=== PATIENT | male | born 1965 | race Caucasian/White ===

== ENCOUNTER 2020-08-01 15:08 | Inpatient (IN) | payer OTHER, SELFPAY ==
[2020-08-01] VITALS (13 sets, daily range): BP systolic 153–187; BP diastolic 90–118; PULSE 62–86; RESP 11–20; TEMP 36.6–36.9; O2SAT 97–100; BMI 24.2
--- NOTE | ~2020-08-01 | US_ITS ---
EXAMINATION: US carotid duplex BI DATE: 08/02/2020 11:21 INDICATION: Stroke TECHNIQUE: Grayscale, color Doppler, and pulsed Doppler images of the cervical carotid arteries were obtained. The degree of vessel stenosis is placed in one of the following categories: normal, <50%, 5 0-69%, >=70% but less than near-occlusion, near-occlusion, or total occlusion. Note that percent sten osis relative to normal distal artery lumen diameter is indirectly measured from velocity measurement s as described by Mark Anthony, et al. Radiology 2003; 229:340-346. COMPARISON: None. FINDINGS: RIGHT: The right common carotid artery (CCA) peak systolic velocity (PSV) is 78 cm/s. The right internal car otid artery (ICA) PSV is 40 cm/s. The right ICA end-diastolic velocity (EDV) is 18 cm/s. The right IC A/CCA PSV ratio is 0.5. Grayscale and color Doppler images demonstrate no appreciable stenosis or heidi que in the ICA. The external carotid artery (ECA) PSV is 51 cm/s. There is antegrade flow in the righ t vertebral artery. LEFT: The left CCA PSV is 63 cm/s. The left ICA PSV is 48 cm/s. The left ICA EDV is 17 cm/s. The left ICA/C CA PSV ratio is 0.8. Grayscale and color Doppler images and straight no appreciable stenosis or plaqu e in the ICA. The ECA PSV is 59 cm/s. There is antegrade flow in the left vertebral artery. IMPRESSION: 1. No evident plaque or stenosis in the right internal carotid artery. 2. No evident plaque or stenosis in the left internal carotid artery. Reviewed, dictated and finalized at location B.
--- NOTE | ~2020-08-01 | MR_ITS ---
EXAMINATION: MR brain/brain stem wo/w con EXAM DATE: 08/02/2020 11:36 INDICATION: Slurred speech. Left facial paresthesia. TECHNIQUE: Magnetic resonance imaging (MRI) of the brain/brain stem obtained without contrast. Sagit dillan T1, axial diffusion, gradient echo (T2*), T1, T2, FLAIR sequences obtained. Patient was then inj ected with 16 cc intravenous Multihance contrast. Axial and coronal postcontrast T1 weighted sequence s obtained. Correlation is made to head CT from 08/01/2020. FINDINGS: There is region of increased T2/FLAIR signal intensity in the right basal ganglia and inter nal capsular, the low-density region seen on yesterday's head CT, measuring about 1 cm in size. There is no restricted diffusion within this as would be expected for an acute infarction. There is puncta te focus of enhancement in the middle of this measuring 4 mm. No other areas of abnormal enhancement. Correlating with history, reportedly patient had symptoms for about a week. This could be a subacute infarction which has recovered from its restricted diffusion. Differential diagnosis does include shawn itary brain lesion with adjacent vasogenic edema based on imaging (history is more consistent with an infarction). There is no acute hemorrhage seen on the T2*, a hemosiderin sensitive sequence. The ventricles are n ormal in size. There are no extra-axial collections. Flow voids are seen in the cerebral arteries o n the T2-weighted sequences consistent with their expected patency. The orbits are unremarkable. So ft tissue is unremarkable. IMPRESSION: Right basal ganglia/internal capsular signal abnormality could be subacute infarction but with differential diagnosis including vasogenic edema from small underlying enhancing brain mass. Co nsider 1-3 month follow-up brain MRI to confirm expected evolution. Reviewed, dictated and finalized at location A. IMPRESSION: Right basal ganglia/internal capsular signal abnormality could be s ubacute infarction but with differential diagnosis including vasogenic edema fr om small underlying enhancing brain mass. Consider 1-3 month follow-up brain MR I to confirm expected evolution.
--- NOTE | ~2020-08-01 | CT_ITS ---
EXAMINATION: CT brain wo con DATE: 08/01/2020 15:52 INDICATION: Slurred speech. Facial weakness. TECHNIQUE: Computed tomography (CT) of the head was performed without intravenous contrast. The mA wa s adjusted according to patient size. Iterative reconstruction technique was employed. The dose-lengt h product was 605.33 mGy-cm. COMPARISON: None FINDINGS: There is an infarct involving the right basal ganglia and right internal capsule. There is an old lacunar infarct in the left basal ganglia. There is no intracranial hemorrhage or abnormal mas s lesion. The orbits are normal. There is mild mucosal thickening in the paranasal sinuses. The masto id air cells are normal. IMPRESSION: 1. Infarct involving the right basal ganglia and right internal capsule, likely acute. I called this result to Dr. Beal. 2. Old lacunar infarct in the left lentiform nucleus. Reviewed, dictated and finalized at location A.
--- NOTE | ~2020-08-01 | XR_ITS ---
EXAMINATION: XR chest 1V DATE: 08/01/2020 15:57 INDICATION: Shortness of breath. Confusion. Stroke. TECHNIQUE: A single frontal view of the chest was obtained. COMPARISON: None. FINDINGS: A calcified right lung nodule and calcified right hilar lymph nodes are consistent with old granulomatous disease. No pleural effusion or pneumothorax. The heart size is normal. There is an ol d healed fracture of left scapula. IMPRESSION: 1. No acute cardiopulmonary disease. Reviewed, dictated and finalized at location A.
--- NOTE | 2020-08-01 15:34 | ECG_ITS ---
Measurements Intervals Chancellor Rate: 71 P: 55 MN: 176 QRS: -5 QRSD: 138 T: 30 QT: 404 QTc: 442 Interpretive Statements SINUS RHYTHM INTRAVENTRICULAR CONDUCTION DELAY DELAYED PRECORDIAL R/S TRANSITION BASELINE ARTIFACT- V5-V6 BORDERLINE ECG Electronically Signed On 08-01-2020 17:19:56 CDT by Juan Rojas D.O.
[2020-08-01 15:50] LABS: Basophils Percent Auto 0.5 % (0.2-1.2); Eosinophils Absolute Auto 0.1 K/mm3 (0-0.3); Eosinophils Percent Auto 1.4 % (0-4.4); Hematocrit 42.4 % (42.0-52.0); Hemoglobin 14.4 g/dL (14.0-18.0); Immature Granulocyte Absolute 0.03 K/mm3 (0.00-0.031); Immature Granulocyte Percent A 0.4 % (0-0.5); Lymphocytes Absolute Auto 2.18 K/mm3 (0.9-3.2); Mean Corpuscular Hemoglobin 30.1 pg (26-34); Mean Corpuscular Volume 88.7 fl (80-100); Mean Platelet Volume 9.8 fl (7.4-10.4); Monocytes Absolute Auto 0.7 K/mm3 (0.1-0.6); Monocytes Percent Auto 8.2 % (2.6-8.5); Neutrophils Absolute Auto 5.3 K/mm3 (1.3-6.7); Neutrophils Percent Auto 63.5 % (45.5-73.1); Platelet Count Result 289 k/mm3 (150-375); Red Blood Count 4.78 M/mm3 (4.6-6.20); Red Cell Distribution Width 14.5 % (11.5-14.5); White Blood Count 8.4 K/mm3 (4.5-10.0)
[2020-08-01 16:01] LABS: Anion Gap 8 mmol/L (8-16); Blood Urea Nitrogen 11 mg/dL (9-20); Carbon Dioxide 24 mmol/L (22-30); Chloride 108 mmol/L (98-107); Estimated CRCL calculation 99 ml/min; Estimated Glomerular Filt Rate > 60; Glucose 98 mg/dL (75-110); Potassium 3.9 mmol/L (3.4-5.0); Sodium 140 mmol/L (137-145)
[2020-08-01 16:03] LABS: INR 0.9; Prothrombin Time 12.2 Seconds (11.1-14.7)
[2020-08-01 16:04] LABS: Partial Thromboplastin Time 30.2 SECONDS (22.3-36.8)
[2020-08-01 16:13] LABS: Troponin I 0.013 ng/mL (0.000-0.034)
[2020-08-01 17:02] LABS: Cholesterol 220 mg/dL (0-200); HDL Direct 79 mg/dL; Triglycerides 159 mg/dL (<150)
[2020-08-01 17:12] LABS: LDL Cholesterol Direct 96 mg/dL
[2020-08-01 17:24] LABS: Glucose Point of Care 76 (65-105)
--- NOTE | 2020-08-01 18:52 | ED.NEUROSD ---
HPI - Neuro Symptoms/Deficit General Chief Complaint: Neuro Symptoms/Deficit Stated Complaint: AMS, R facial droop Time Seen by Provider: 08/01/20 16:01 Source: patient Mode of arrival: ambulatory Limitations: no limitations History of Present Illness HPI Narrative: 55-year-old male Patient complains of left-sided facial weakness that started last Sunday after a long difficult shift at work He noticed facial asymmetry, a lump by his upper lip, and a tingly feeling to his tongue which over the course of the past 6 days have improved but not quite 100% resolved Today he submitted finally to his 's urging and presented to the hospital to be evaluated He is not having any speech difficulties, any visual difficulties, any swallowing difficulties, notes no weakness of his arms or his legs, and no gait difficulty Related Data Home Medications Medication Instructions Recorded Confirmed No Home Medications 08/01/20 08/01/20 Allergies Allergy/AdvReac Type Severity Reaction Status Date / Time No Known Allergies Allergy Verified 08/01/20 16:23 Review of Systems Review of Systems: All systems reviewed & are unremarkable except as noted in HPI and below Constitutional: Constitutional: Reports no additional constitutional complaints, Denies chills, Denies fever(s) and Denies headache(s) Eyes: Eyes: Reports no additional eye complaints and Denies change in vision ENT: Denies headache(s) and Denies sore throat Cardiovascular: Cardiovascular: Denies chest pain and Denies dyspnea Respiratory: Respiratory: Denies cough and Denies dyspnea Gastrointestinal: Gastrointestinal: Denies abdominal pain, Denies diarrhea and Denies vomiting Genitourinary: Genitourinary: Denies dysuria and Denies urinary frequency Musculoskeletal: Musculoskeletal: Denies deformity, Denies arthralgias, Denies joint swelling and Denies numbness Integumentary/Breasts: Skin/Breast: Denies rash and Denies wounds Neurologic: Denies headache(s), Reports focal weakness and Reports numbness Psychiatric: Psychiatric: Reports no additional psychiatric complaints Endocrine: Endocrine: Reports no additional endocrine complaints Hematologic/Lymphatic: Hematologic/Lymphatic: Reports no additional hematologic/lymphatic complaints Allergic/Immunologic: Allergic/Immunologic: Reports no additional allergic/immunologic complaints PMFSH Social History Social History Gender identity (if verbalized by the patient): Male Exam Const: General: cooperative, no acute distress and alert Orientation/consciousness: patient oriented x3 (alert) HENMT: Head: normal to inspection, normocephalic and atraumatic Ears: external ears normal General nose exam: no epistaxis Eyes: Conjunctivae: conjunctivae normal EOM: EOMs intact bilaterally Neck: Neck: normal visual inspection, supple and no JVD Other: No carotid bruits Resp: Effort & Inspection: normal respiratory effort and not labored Auscultation: clear to auscultation bilaterally, no rales, no rhonchi, no wheezes and other (BS =) Cardio: Rate: regular rate Rhythm: regular rhythm Heart sounds: no murmurs GI: GI Palp: Yes Soft to palpation and No Tenderness to palpation present (GI) Skin: General skin exam: normal color and no rashes or lesions noted Neuro: General: patient oriented x3 (alert) and moves all extremities Cranial nerves: Yes Nystagmus not present Speech: normal speech Extrem: General: normal to inspection Psych: Affect: normal affect Course Vital Signs Vital signs: Vital Signs Temperature 36.6 C 08/01/20 15:26 Pulse Rate 86 08/01/20 15:26 Respiratory Rate 16 08/01/20 15:26 Blood Pressure 169/97 H 08/01/20 15:26 Pulse Oximetry 100 08/01/20 15:26 Temperature 36.8 C 08/01/20 18:16 Pulse Rate 66 08/01/20 18:34 Respiratory Rate 14 08/01/20 18:34 Blood Pressure 156/99 H 08/01/20 18:34 Pulse Oximetry 99 08/01/20 18:34 MDM - Neuro Symptoms/De
--- NOTE | 2020-08-01 19:45 | PM.IMHP ---
H&P: HPI History of Present Illness Date/Time: 08/01/20 19:45 Chief Complaint: Slurred speech and left face paresthesias. Narrative: This is a 55-year-old male smoker with history of hypertension no longer on medication who presented to the emergency department earlier today from home for evaluation of slurred speech and left facial paresthesias. Last Sunday while at work he noticed that the left side of his mouth and tongue seemed to feel a bit strange and his speech was slurred. Initially he chalked that up to having a stressful shift however it has persisted though his symptoms have improved. Today he apparently took a medication that he obtained in [place] for erectile dysfunction and he became very anxious and ?hyperactive.? His thought that his speech also seem to be more slurred and she was worried given his other symptoms and made him come in today for evaluation. Brain CT showed a likely acute infarct in the right basal ganglia and the right internal capsule as well as findings of an old lacunar infarct in left lentiform nucleus, unknown to the patient. He denies vertigo but reports that he felt a bit off balance earlier today. No syncope or near syncope. No acute auditory visual changes. He denies focal weakness. No paresthesias of the extremities. He has no history of cardiac dysrhythmia and denies feelings of racing heart, palpitations, and irregular heartbeat. No dysphagia or concerns for aspiration. Review of Systems Review of Systems: Narrative: Twelve systems were reviewed with pertinent positives and negatives as per HPI. He was on blood pressure medications quite sometime ago but started following a stricter diet and was able to come off of those medications. He does not check his blood pressures at home. He denies headache. No exertional chest pain or shortness of breath. 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 Except as documented, all other systems were reviewed and are negative. [facility] Past Medical History Medical History (Updated 08/02/20 @ 00:21 by Ailin Pratt PA-C) Blind right eye Nearly 100% blind in the right eye due to previous trauma and retinal detachment. Hypertension Patient was able to come off of his antihypertensives with a change in diet. Tobacco abuse Surgical History Surgical History (Updated 08/02/20 @ 00:17 by Ailin Pratt PA-C) History of repair of anterior cruciate ligament of right knee Family History Family History Mother Heart disease Hypertension Father Heart disease Congestive heart failure Social History Social History (Updated 08/02/20 @ 00:20 by Ailin Pratt PA-C) Social History: The patient lives with his in [place]. He works in [employer]. He has smoked about a pack of cigarettes per day, off and on for many years. At one point in time he quit for 5 years but has been smoking for the last decade. He consume alcohol socially and in moderation. No drug use. He designates his Billie as his surrogate decision maker and he wishes to be a full code. Meds Home Medications and Allergies Home Medications Medication Instructions Recorded Confirmed Type No Home Medications 08/01/20 08/01/20 History Allergies Allergy/AdvReac Type Severity Reaction Status Date / Time No Known Allergies Allergy Verified 08/01/20 16:23 Vital Signs Vital Signs - 24 hr 08/01/20 15:26 08/01/20 16:19 08/01/20 16:46 Temperature 97.8 F 98.4 F Pulse Rate 86 68 71 Respiratory Rate 16 13 18 Blood Pressure 169/97 H 187/110 H 187/118 H Pulse Oximetry 100 98 100 08/01/20 17:01 08/01/20 17:30 08/01/20 17:57 Temperature Pulse Rate 64 62 69 Respiratory Rate 13 12 11 L Blood Pressure 167/104 H 161/99 H 153/91 H Pulse Oximetry 100 99 100 08/01/20 18:01 08/01/20 18:16 08/01/20 18:34 Tem
[2020-08-01] MEDS: LACTATED RINGERS 1,000 ML 125 ML IV CONT (20:14)
[2020-08-02] VITALS (13 sets, daily range): BP systolic 155–198; BP diastolic 85–118; PULSE 55–83; RESP 16; TEMP 35.9–36.5; O2SAT 98–100
--- NOTE | 2020-08-02 00:26 | ECHO_ITS ---
Patient Info Name: Tyson Taylor Age: 55 years : 1965 Gender: Male Ht: 72 in Wt: 178 lbs BSA: 2.03 m2 HR: 62 bpm BP: 175 / 90 mmHg Technical Quality: Good Exam Date: 08/02/2020 3:03 PM Exam Location: [facility] Patient Status: Inpatient Admit Date: 08/01/2020 Staff Ordering Physician: Ailin Pratt PA-C Cabinetmaker Supervisor: Sarah Goodrich RDCS Attending Provider: Junie Rojas PA-C Referring Physician: Santa TRIVEDI; Exam Type: CA echo dop bubble study w con Study Info Indications - CVA I10 - Essential (primary) hypertension Complete two-dimentional, color flow and Doppler transthoracic echocardiogram is performed with agitated saline and with contrast to opacify the left ventricle and to improve the delineation of the left ventricle endocardial borders. Contrast/Agitated Saline Contrast/Ag. Saline: Agitated Saline Amount: 20.00 ml Administered By: Kavita Orta RN Existing IV Access: Yes IV Access Condition: patent with no signs of infiltration Contrast/Ag. Saline: Definity Amount: 1.00 ml Administered By: Kavita Orta RN Existing IV Access: Yes IV Access Condition: patent with no signs of infiltration Summary 1. Left ventricular chamber dimension is moderately enlarged. 2. Definity contrast administered improved wall motion interpretation. 3. Left ventricular systolic function is mildly reduced, estimated at 45-50%. 4. There is mildly increased left ventricular wall thickness. 5. The left ventricular diastolic function is grade I diastolic dysfunction. 6. E/e' 5 is not elevated. 7. Global longitudinal strain is abnormal at -12.2%. 8. Agitated saline injection opacified right sided cardiac chambers without shunt to left sided cardiac chambers. However, with second agitated saline injection with valsalva maneuver several bubbles did shunt from right to left suggestive of patent foramen ovale. 9. There is mild aortic valve sclerosis. 10. There is trace mitral valve regurgitation. 11. No pulmonary hypertension, estimated pulmonary arterial systolic pressure is 25 mmHg. 12. There is trace pulmonic regurgitation. Left Ventricle E/e' 5 is not elevated. Global longitudinal strain is abnormal at -12.2%. Definity contrast administered improved wall motion interpretation. Left ventricular chamber dimension is moderately enlarged. Left ventricular systolic function is mildly reduced, estimated at 45-50%. There is mildly increased left ventricular wall thickness. The left ventricular diastolic function is grade I diastolic dysfunction. Right Ventricle Right ventricular chamber dimension is normal. Right ventricular systolic function is normal. Left Atria Left atrial chamber dimension is normal. Right Atria Right atrial chamber dimension is normal. Atrial Septum Agitated saline injection opacified right sided cardiac chambers without shunt to left sided cardiac chambers. However, with second agitated saline injection with valsalva maneuver several bubbles did shunt from right to left suggestive of patent foramen ovale. Suspected patent foramen ovale visualized by agitated saline imaging. Aortic Valve The aortic valve is trileaflet. There is mild aortic valve sclerosis. There is no aortic valve stenosis. There is no aortic valve regurgitation. Pulmonic Valve There is trace pulmonic regurgitation. Mitral Valve There is no mi
[2020-08-02] MEDS: LOSARTAN POTASSIUM 12.5 MG TABLET PO (00:37)
[2020-08-02 05:51] LABS: Alanine Aminotransferase 24 U/L (4-50); Albumin Level 3.6 g/dL (3.5-5.1); Alkaline Phosphatase 73 U/L (38-126); Aspartate Amino Transferase 31 U/L (17-59); Bilirubin,Total 0.4 mg/dL (0.2-1.3); Cholesterol 194 mg/dL (0-200); HDL Direct 67 mg/dL; Triglycerides 83 mg/dL (<150)
[2020-08-02 06:02] LABS: LDL Cholesterol Direct 89 mg/dL
[2020-08-02] MEDS: hydroCHLOROthiazide 25 MG TABLET PO (08:02)
[2020-08-02] MEDS: LOSARTAN POTASSIUM 25 MG TABLET PO (08:02)
[2020-08-02] MEDS: ASPIRIN 81 MG ENTERIC TABLET PO (08:02)
--- NOTE | 2020-08-02 10:16 | WPDNEURCNPN ---
Assessment and Plan Assessment and plan (1) Tobacco abuse: Code(s): Z72.0 - Tobacco use Status: Acute (2) Hypertension: Code(s): I10 - Essential (primary) hypertension Status: Acute (3) Cerebrovascular accident: Code(s): I63.9 - Cerebral infarction, unspecified Status: Acute Additional Plan right hemispheric subcortical stroke with involvement of the right basal ganglia and internal capsule further evaluation will be necessary to rule out the possibly underlying source of embolic phenomenon if it is there before recall it only hypertensive subcortical disease he will need the MRI echocardiogram Doppler study of the carotids Consult date: 08/02/20 Time Seen: 10:00 HPI: Tyson Taylor is a 55 year old male Has been admitted to the hospital for the complaints of left-sided facial paresthesia along with slurred speech in addition to the ongoing history of 1. Hypertension though at present is not taking any medication. Per the information available last Sunday while at work in noted the left side of his mouth and tongue seem to feel a bit strange and his speech was somewhat slurred on the day of admission this time he became extremely anxious and hyperactive his speech was also somewhat slurred initial CT scan in the emergency room revealed acute infarct in the right basal ganglia and right internal capsule along with the lacunar infarct the left lentiform nucleus though he had no associated nausea vomiting or dizziness but at the same time he was somewhat off balance. his past history consistent with the blindness in the right eye along with the hypertension and history of tobacco abuse and he has undergone repair of the anterior cruciate ligament of the right knee. Review of Systems Review of Systems: All systems reviewed & are unremarkable except as noted in HPI and below PMFSH Past Medical History Medical History Blind right eye Nearly 100% blind in the right eye due to previous trauma and retinal detachment. Hypertension Patient was able to come off of his antihypertensives with a change in diet. Tobacco abuse Surgical History Surgical History History of repair of anterior cruciate ligament of right knee Family History Family History Mother Heart disease Hypertension Father Heart disease Congestive heart failure Social History Social History Social History: The patient lives with his in [place]. He works in [employer]. He has smoked about a pack of cigarettes per day, off and on for many years. At one point in time he quit for 5 years but has been smoking for the last decade. He consume alcohol socially and in moderation. No drug use. He designates his Billie as his surrogate decision maker and he wishes to be a full code. Meds Home Medications and Allergies Home Medications Medication Instructions Recorded Confirmed Type No Home Medications 08/01/20 08/01/20 History Allergies Allergy/AdvReac Type Severity Reaction Status Date / Time No Known Allergies Allergy Verified 08/01/20 16:23 Vital Signs Vital Signs - 24 hr 08/01/20 15:26 08/01/20 16:19 08/01/20 16:46 Temperature 36.6 C 36.9 C Pulse Rate 86 68 71 Respiratory Rate 16 13 18 Blood Pressure 169/97 H 187/110 H 187/118 H Pulse Oximetry 100 98 100 08/01/20 17:01 08/01/20 17:30 08/01/20 17:57 Temperature Pulse Rate 64 62 69 Respiratory Rate 13 12 11 L Blood Pressure 167/104 H 161/99 H 153/91 H Pulse Oximetry 100 99 100 08/01/20 18:01 08/01/20 18:16 08/01/20 18:34 Temperature 36.8 C Pulse Rate 71 66 66 Respiratory Rate 20 14 14 Blood Pressure 164/90 H 156/99 H 156/99 H Pulse Oximetry 100 99 99 08/01/20 19:15 08/01/20 20:35 08/01/20 20:40 Temperature 36.6 C
[2020-08-02] MEDS: hydrALAZINE HCL 20 MG/ML VIAL 10 MG IV PUSH ×2 (14:23→17:48)
--- NOTE | 2020-08-02 14:49 | PM.IMPN ---
Progress Note: A&P Assessment and Plan (1) Cerebrovascular accident: Code(s): I63.9 - Cerebral infarction, unspecified Status: Acute Assessment and Plan: Brain CT showed an acute stroke as well as findings of an old stroke, unknown to the patient. Likely due to uncontrolled hypertension and ongoing tobacco abuse. Carotid Doppler showed no plaque or stenosis in bilateral internal carotid arteries. Brain MRI showed right basal ganglia/internal capsule signal abnormality, most likely subacute infarct. His symptoms have resolved. He has been seen in consultation by Neurology. He will be started on daily aspirin therapy. Will control further risk factors including hypertension and tobacco abuse, as described below. ASCVD risk is 11.5%, therefore will initiate moderate intensity statin. Diet and exercise importance discussed. He will follow-up with neurology as an outpatient and will need to establish care with a PCP. Awaiting echocardiogram bubble study. Hopeful discharge today pending results. (2) Hypertension: Code(s): I10 - Essential (primary) hypertension Status: Acute Assessment and Plan: Blood pressure reviewed and is elevated above target. Continue hydrochlorothiazide and losartan. Recommended close BP monitoring at home with further review by PCP within 1 week. (3) Tobacco abuse: Code(s): Z72.0 - Tobacco use Status: Acute Assessment and Plan: He smokes 1 pack per day. He has declined need for nicotine patch. I have educated him on importance of smoking cessation for 8 minutes. He is motivated to quit smoking and plans to do so effective immediately. (4) Abnormal brain MRI: Code(s): R90.89 - Other abnormal findings on diagnostic imaging of central nervous system Status: Acute Assessment and Plan: Brain MRI showed right basal ganglia/internal capsular signal abnormality felt to most likely be subacute infarct, however differential diagnosis of vasogenic edema from small underlying enhancing brain mass considered. Radiology has recommended 1-3 month follow-up brain MRI. Results discussed with neurologist. Patient made aware of results and understands need for repeat imaging in 1-3 months. Subjective Date/time seen: 08/02/20 14:49 Interval history: Date of service: 08/02/2020 Tyson Taylor is a 55-year-old male with history of hypertension, tobacco abuse, and blindness in the right eye is seen in follow-up for suspected CVA. He is feeling very well today. His symptoms have resolved entirely and he is feeling in his usual state of health. Denies any speech changes. No dysphagia. No weakness, dizziness, lightheadedness, loss of coordination or balance. No headache. No paresthesias. Denies shortness breath, chest pain, cough, abdominal pain, nausea, vomiting, fever, or chills. Review of Systems Review of Systems: All systems reviewed & are unremarkable except as noted in HPI and below Exam Narrative: Exam Narrative: Mr. Taylor is a well-nourished, well-appearing 55-year-old male who is lying semi recumbent in bed. He appears comfortable and is in NARD. Neuro: awake, alert and oriented x 4, speech clear, CN II-XII intact, strength 5/5 throughout, sensation intact, no pronator drift, bilateral stenographer print shop strength equal, able to perform rapid alternating movements, able to perform finger to nose, gait normal HEENMT: normocephalic, atraumatic, EOMI, sclerae anicteric, moist oral mucosa, tongue midline, nares patent Neck: supple, no lymphadenopathy Respiratory: clear to auscultation bilaterally, nonlabored breathing Cardio: regular rate, regular rhythm with S1-S2 Abdomen: nondistended, normoactive bowel sounds, soft, nontender to palpation, no rigidity or guarding Extremities: no edema, erythema, cyanosis, clubbing, or tenderness to palpation, DP pulses 2+ bilaterally Skin: no rashes or lesions, warm and dry Psych: appropriate mood
[2020-08-02] MEDS: PERFLUTREN LIPID MICROSPHERES 1.5 ML VIAL DILUTED TO 10 ML TOTAL VOLUME IV PUSH (15:38)
--- NOTE | 2020-08-02 16:13 | PCSTNOTE ---
Please refer to the Bedside Swallow Evaluation in the EMR. Please note, silent aspiration cannot be ruled out at bedside.
[2020-08-02] MEDS: MELATONIN 5 MG TABLET PO (21:15)
[2020-08-03] VITALS (13 sets, daily range): BP systolic 136–171; BP diastolic 94–112; PULSE 55–83; RESP 14–18; TEMP 36.1–37.1; O2SAT 98–100
[2020-08-03] MEDS: LOSARTAN POTASSIUM 25 MG TABLET PO ×2 (08:38→14:03)
[2020-08-03] MEDS: hydroCHLOROthiazide 25 MG TABLET PO (08:38)
[2020-08-03] MEDS: ASPIRIN 81 MG ENTERIC TABLET PO (08:38)
--- NOTE | 2020-08-03 14:06 | PM.IMPN ---
Progress Note: A&P Assessment and Plan (1) Cerebrovascular accident: Code(s): I63.9 - Cerebral infarction, unspecified Status: Acute Assessment and Plan: Brain CT showed an acute stroke as well as findings of an old stroke, unknown to the patient. Likely due to uncontrolled hypertension and ongoing tobacco abuse. Carotid Doppler showed no plaque or stenosis in bilateral internal carotid arteries. Brain MRI showed right basal ganglia/internal capsule signal abnormality, most likely subacute infarct. His symptoms have resolved. He has been seen in consultation by Neurology.Will control further risk factors including hypertension and tobacco abuse, as described below. ASCVD risk is 11.5%. Echocardiogram performed 08/02/20 suggested PFO with valsalva only, moderate LV enlargement with EF 45-50%, grade I diastolic dysfunction. Management per neurology Continue ASA EC 81mg Continue atorvastatin Blood pressure improving but still not at target, follow trend and adjust antihypertensives as indicated Tobacco cessation is crucial and this has been encouraged He will follow-up with neurology as an outpatient and will need to establish care with a PCP Cardiology consulted for concern regarding PFO, ARIEL planned for tomorrow He will need 30 day hall monitor upon discharge (2) PFO (patent foramen ovale): Code(s): Q21.1 - Atrial septal defect Status: Acute Assessment and Plan: Demonstrated on 2D echocardiogram with Valsalva only. Unclear if this contributed to acute CVA but he may benefit from closure given potential associated risks. Cardiology consulted with input greatly appreciated Plan for ARIEL tomorrow for further anatomic clarification per cardiology Continue ASA (3) Cardiomyopathy: Code(s): I42.9 - Cardiomyopathy, unspecified Status: Acute Assessment and Plan: Echocardiogram performed 08/02/20 demonstrated moderate LV enlargement with EF 45-50%, grade I diastolic dysfunction. He appears euvolemic, well-compensated. May be secondary to uncontrolled hypertension, alcohol use, or undiagnosed CAD. Cardiology consulted with input appreciated Initiate metoprolol succinate 25mg QD Continue losartan Continue to encourage alcohol abstinence and smoking cessation He will benefit from outpatient ischemic evaluation per cardiology after recovery from CVA (4) Hypertension: Code(s): I10 - Essential (primary) hypertension Status: Acute Assessment and Plan: Blood pressure reviewed and is elevated above target but improving. Will avoid hypotension given CVA. . Continue hydrochlorothiazide and losartan, give additional 25mg losartan today and increase to 50mg tomorrow Metoprolol succinate added as well Recommended close BP monitoring at home with further review by PCP within 1 week. (5) Tobacco abuse: Code(s): Z72.0 - Tobacco use Status: Acute Assessment and Plan: He smokes 1 pack per day. He has declined need for nicotine patch. Continue to encourage smoking cessation. He is motivated to quit smoking and plans to do so effective immediately. (6) Abnormal brain MRI: Code(s): R90.89 - Other abnormal findings on diagnostic imaging of central nervous system Status: Acute Assessment and Plan: Brain MRI showed right basal ganglia/internal capsular signal abnormality felt to most likely be subacute infarct, however differential diagnosis of vasogenic edema from small underlying enhancing brain mass considered. Management and follow-up recommendations will be deferred to neurology, Dr. Andrew, who is following Radiology has recommended 1-3 month follow-up brain MRI. Patient made aware of results and understands need for repeat imaging in 1-3 months. Subjective Date/time seen: 08/03/20 14:06 Interval history: Mr. Taylor is a 55 y.o. male with PMH significant for hypertension, tobacco abuse, and blind
--- NOTE | 2020-08-03 15:58 | PM.CNCAR ---
Assessment and Plan Assessment and plan (1) PFO (patent foramen ovale): Code(s): Q21.1 - Atrial septal defect Status: Acute Assessment and Plan: Noted on 2D echocardiogram with Valsalva only. Unclear if involved with CVA concern. Explained this pathophysiology at great length with patient and his . Discussed potential indication for PFO closure with referral to [facility] as an outpatient. Plan for ARIEL tomorrow morning for further anatomic clarification. Risks, benefits, and alternatives discussed. Uncontrolled HTN, tobacco abuse thought to be most likely mechanism for CVA, although PFO contribution cannot be excluded. (2) Cardiomyopathy: Code(s): I42.9 - Cardiomyopathy, unspecified Status: Acute Assessment and Plan: New diagnosis, by echo mild LV systolic dysfunction EF 45-50%. No CHF decompensation. Patient admits to fairly heavy alcohol intake. Differential includes ETOH induced, undiagnosed underlying CAD and myocardial ischemia, and uncontrolled hypertension. -advised medical therapy with addition of beta-treva Toprol XL 25 mg daily. Continue ARB. BP control. Absence from alcohol. Left somewhat occasion counseling, smoking cessation. -consider outpatient ischemic evaluation once patient is more full require a stroke perspective. Optimize medical therapy. (3) Hypertension: Code(s): I10 - Essential (primary) hypertension Status: Acute Assessment and Plan: Not ideally control but improved since admission. Given recent stroke avoid aggressive control and relative hypotension. (4) Cerebrovascular accident: Code(s): I63.9 - Cerebral infarction, unspecified Status: Acute Assessment and Plan: Neuro following. Right basal ganglia/internal capsule possible subacute infarction. Questionable vasogenic edema from underlying brain mass recommend follow-up MRI. Defer to Neurology for further management in this regard. No evidence for carotid arterial disease. Continue aspirin 81 mg daily. Add statin therapy given CVA. Goal LDL less than 70. Add atorvastatin 20 mg daily. Outpatient 30 day playground monitor upon discharge to assess for alternative mechanism for stroke with atrial fibrillation and/or atrial flutter. No prior diagnosis. We discussed this pathophysiology and risk for cardioembolic etiology at great length. This needs to be excluded and or at least evaluated initially prior to PFO closure consideration. All questions answered to their satisfaction. Verbalized understanding and agreed with plan of care. Telemetry does not reveal AFib rate flutter to date. (5) Abnormal brain MRI: Code(s): R90.89 - Other abnormal findings on diagnostic imaging of central nervous system Status: Acute Assessment and Plan: As above. (6) ETOH abuse: Code(s): F10.10 - Alcohol abuse, uncomplicated Status: Acute Assessment and Plan: Counseled extensively on the cardiotoxic effects of excessive alcohol intake grade advised to abstain given LV dysfunction as this is a likely contribution. Patient and his verbalized understanding and agreed. (7) Tobacco abuse: Code(s): Z72.0 - Tobacco use Status: Acute Assessment and Plan: Smoking cessation family and marriage counsellor performed. Patient states he has quit since presentation and will not resume. Counseled on risks, benefits with smoking cessation. History of Present Illness History of Present Illness Consult date/time: Date of service:08/03/20 15:58 Cardiology consultation at the request of YOBANY Fenton for opinion regarding CVA and PFO noted on echocardiogram. Requesting physician: Junie oRjas PA-C Consult reason: Other (CVA, PFO) Reason For Visit: cva Narrative: 55-year-old male with a past medical history significant for hypertension off medical therapy, tobacco and alcohol abuse who presented to the emergency department with complaints of slurred speech and
--- NOTE | 2020-08-03 17:42 | WPDNEUROPN ---
Progress Note: A&P Assessment and Plan (1) PFO (patent foramen ovale): Code(s): Q21.1 - Atrial septal defect Status: Acute (2) Cardiomyopathy: Code(s): I42.9 - Cardiomyopathy, unspecified Status: Acute (3) ETOH abuse: Code(s): F10.10 - Alcohol abuse, uncomplicated Status: Acute (4) Abnormal brain MRI: Code(s): R90.89 - Other abnormal findings on diagnostic imaging of central nervous system Status: Acute (5) Hypertension: Code(s): I10 - Essential (primary) hypertension Status: Acute (6) Tobacco abuse: Code(s): Z72.0 - Tobacco use Status: Acute (7) Cerebrovascular accident: Code(s): I63.9 - Cerebral infarction, unspecified Status: Acute Additional Plan subcortical strokes as mentioned above, awaiting the cardiological recommendations then most likely patient will be discharged and will follow in the office Review of Systems Review of Systems: All systems reviewed & are unremarkable except as noted in HPI and below Exam Const: General: cooperative, no acute distress, alert and awake Orientation/consciousness: patient oriented x3 Limitations: no limitations Eyes: General: appearance normal, both eyes and all related structures Neck: Neck: full ROM and no lymphadenopathy Resp: Effort & Inspection: normal respiratory effort Auscultation: clear to auscultation bilaterally Cardio: Rate: regular rate Rhythm: regular rhythm GI: Auscultation: normal bowel sounds Neuro: General: patient oriented x3 Cranial nerves: Yes CN's II-XII intact bilaterally Cognition (Neuro): normal cognition Gait exam (Neuro): Normal gait present Motor exam (neuro): 5/5 motor strength present throughout Sensory Exam: Sensory deficit (Neuro) Deep tendon reflexes (DTR's): Right triceps reflex intensity grade: 1+, Left triceps reflex intensity grade: 1+, Rt Biceps (C5, C6): 1+, Left biceps reflex intensity grade: 1+, Right brachioradialis reflex intensity grade: 1+, Left brachioradialis reflex intensity grade: 1+, Right patellar reflex intensity grade: 1+, Left patellar reflex intensity grade: 1+, Right ankle reflex intensity grade: 1+ and Left ankle reflex intensity grade: 1+ Plantar Reflex Responses: downgoing: bilateral Psych: Appearance: grossly normal Objective Data Vital Signs Vital Signs: Vital Signs - 24 hr 08/02/20 18:00 08/02/20 20:00 08/02/20 20:01 Temperature 36.5 C Pulse Rate 81 81 Respiratory Rate 16 16 Blood Pressure 160/100 H 165/99 H Pulse Oximetry 100 100 08/03/20 00:00 08/03/20 02:00 08/03/20 04:00 Temperature 36.4 C Pulse Rate 63 70 55 L Respiratory Rate 16 Blood Pressure 171/94 H Pulse Oximetry 99 08/03/20 04:26 08/03/20 08:00 08/03/20 10:00 Temperature 36.6 C 36.1 C L Pulse Rate 67 72 82 Respiratory Rate 14 16 Blood Pressure 150/96 H 150/112 H Pulse Oximetry 100 100 08/03/20 11:24 08/03/20 12:00 08/03/20 14:00 Temperature 36.3 C L Pulse Rate 75 71 Respiratory Rate 18 Blood Pressure 160/100 H 158/98 H Pulse Oximetry 99 08/03/20 16:00 08/03/20 17:42 Temperature 37.1 C Pulse Rate 71 73 Respiratory Rate 18 Blood Pressure 150/106 H Pulse Oximetry 99 Intake/Output Intake/Output: Intake & Output 07/31/20 08/01/20 08/02/20 08/03/20 23:59 23:59 23:59 23:59 Intake Total 3090 1520 Output Total 400 Balance 2690 1520 Meds/Results Medications: Active Medications Generic Name Dose Route Start Last Admin Trade Name Freq PRN Reason Stop Dose Admin Aspirin 81 mg 08/02/20 09:00 08/03/20 08:38 Aspirin 81 Mg Enteric Tablet PO 81 mg QAM WILLIAMS Administration Atorvastatin Calcium 20 mg 08/04/20 09:00 Atorvastatin 20 Mg Tablet PO DAILY [facility] Hydralazine HCl 10 mg 08/02/20 00:25 08/02/20 17:48 Hydralazine Hcl 20 Mg/Ml Vial IV PUSH 10 mg Q6H PRN Administration SBP > 165 or DBP > 105 Hydrochlorothiazide 25 mg 08/02/20 09:00
[2020-08-03] MEDS: MELATONIN 5 MG TABLET PO (22:06)
[2020-08-04] VITALS (15 sets, daily range): BP systolic 115–140; BP diastolic 62–94; PULSE 58–105; RESP 13–16; TEMP 36.3–36.6; O2SAT 94–100
--- NOTE | 2020-08-04 10:05 | PC.NURSE ---
To GI Lab for ARIEL per stretcher.
[2020-08-04 10:14] LABS: Anion Gap 5 mmol/L (8-16); Blood Urea Nitrogen 17 mg/dL (9-20); Carbon Dioxide 32 mmol/L (22-30); Chloride 102 mmol/L (98-107); Estimated CRCL calculation 67 ml/min; Estimated Glomerular Filt Rate > 60; Glucose 101 mg/dL (75-110); Magnesium 1.9 mg/dL (1.6-2.3); Potassium 4.3 mmol/L (3.4-5.0); Sodium 139 mmol/L (137-145)
--- NOTE | 2020-08-04 11:08 | WPDTEECHO ---
ARIEL TransEsophageal Echocardiogram Date of procedure: 08/04/20 Procedure Type: transesophageal echocardiogram Diagnosis: CVA, possible PFO Indications: CVA, possible PFO Image Quality: good Findings: Brief history present illness: Patient is a pleasant 55-year-old male with a history of hypertension, EtOH abuse, tobacco abuse presented with slurred speech and left facial numbness with evidence of possible subacute infarction by MRI. Patient had a 2D echocardiogram with possible PFO with Valsalva only referred for transesophageal echocardiogram for further evaluation. Procedure in detail: After verbal and written informed consent was obtained the patient risks, benefits, and alternatives explained in detail the patient agreed to proceed with the plan of care as outlined above. The patient was evaluated at bedside in the Endoscopy Suite. The posterior oropharynx, neck, and jaw angle all within normal limits on examination. Lungs were clear to auscultation. See pre-sedation note for further details The patient was then placed in the appropriate 30 to 45 degree angle supine position at a slight left lateral decubitus position. Patient was monitored throughout the study with telemetry, oxygen saturation, end-tidal CO2 monitoring, blood pressure, heart rate, and respirations. The posterior hypopharynx was then locally anesthetized using repeated administration of Hurricaine spray. After local anesthetic of the posterior hypopharynx was achieved and the oral bite block placed, along with adequate sedation by Anesthesiology, the transesophageal echocardiogram probe was advanced through the oral bite block into the posterior hypopharynx and into the esophagus easily and without complication. Multiple, multiplanar echocardiographic images were obtained in multiple standard re- projections. Pulsed wave, continuous-wave, and color-flow Doppler were utilized in conjunction with this study. At the conclusion of the study, the transesophageal echocardiogram probe was removed easily and without complication. The patient tolerated the procedure well without difficulty. Patient was in sinus rhythm throughout the study. Moderate Sedation/Anesthesia administration: Patient reports no prior problems with sedation/anesthesia. Please see Anesthesiology documentation for sedation details and protocol. Findings: Left ventricular size is mild to moderately enlarged with mild LV systolic dysfunction with ejection fraction visually estimated at 45%. Right ventricular size and systolic function within normal limits. Left atrial size is normal. Right atrial size is normal. Mobile filamentous echodensity consistent with remnant Eustachian valve noted, normal variant. Interatrial septum is anatomically normal without evidence of shunt with color-flow Doppler nor with injection of agitated saline without Valsalva and with Valsalva x2. Faint late bubbles noted in left atrium at beat 15 with first injection consistent with extracardiac shunt. Mitral valve is anatomically normal with preserved leaflet excursion and trace to mild regurgitation. The tricuspid valve is anatomically normal with normal leaflet excursion with trivial regurgitation identified. No mobile elements identified. The aortic valve was an anatomically normal 3 leaflet structure with normal leaflet excursion and no regurgitation identified. Pulmonic valve was not well visualized, however, trivial regurgitation was identified. The left atrial appendage was an anatomically normal structure with prominent pectinate muscles without thrombus or vegetation identified. Left atrial appendage velocities averaged approximately 60 centimeters/second. Of note, there was splay artifact resulting in appearance of echodensity within ROSELINE, however, when artifact was not present no such echodensity appreciated. Furthermore, with brisk flow within LA appendage thrombus formation would be highly unlikely. Left upper pulmonary ve
--- NOTE | 2020-08-04 11:31 | PM.DS ---
DS: Admitting Diagnosis Admitting Diagnosis Admitting Diagnosis: Subacute CVA DS: Discharge Diagnosis Discharge Diagnosis (1) Cerebrovascular accident: Code(s): I63.9 - Cerebral infarction, unspecified Status: Inactive Assessment and Plan: Discharge Summary (Date of service 08/04/20): Mr. Taylor is a 55 y.o. male with PMH significant for hypertension (not on antihypertensive therapy prior to admission), tobacco abuse, and blindness in the right eye who presented to the emergency department on 08/01/20 for the evaluation of left-sided facial paresthesias and slurred speech. He reports that his symptoms started on 07/26/20. He thought this may be secondary to stress and did not seek evaluation at that time. He took a medication for erectile dysfunction that he got from [facility] on 08/01/20 and became very hyperactive and anxious. His felt his speech was also slurred which prompted evaluation it the emergency department. Vitals on arrival were notable for blood pressure elevation of 169/97. Brain CT showed an acute infarct involving the right basal ganglia and right internal capsule and an old lacunar infarct in the left lentiform nucleus. CXR was unremarkable. He was treated with aspirin and antihypertensive was initiated. Neurology was consulted. MRI was performed and demonstrated right basal ganglia/internal capsular signal abnormality could be subacute infarction but with differential diagnosis including vasogenic edema from a small underlying enhancing brain mass. Neurology felt this was more likely second to subacute infarct and recommends repeat brain MRI in 1-2 months for very close monitoring to r/o evolving mass. The patient was made aware of this finding and verbalized understanding for the need for close follow-up. He was given an order for the MRI and will need to get this scheduled with Dr. Andrew's office in 1-2 months. Carotid Doppler US showed no plaque or stenosis in bilateral internal carotid arteries. ASCVD risk is 11.5%. Atorvastatin was initiated. Echocardiogram performed 08/02/20 suggested PFO with valsalva only, moderate LV enlargement with EF 45-50%, grade I diastolic dysfunction. He underwent ARIEL on 08/04/20 which demonstrated no evidence of intracardiac shunt at the atrial level with or without Valsalva. His blood pressure was slowly lowered with oral agents which were uptitrated to a goal blood pressure of 130/80. He will need 30 day telemetry monitoring at discharge and he went to get this from the cardiology office in the emergency department. Tobacco cessation is imperative and he is motivated to quit. Alcohol cessation is also crucial and he verbalized understanding. He had no residual deficits and felt back to baseline. He was discharged in hemodynamically stable condition on the afternoon of 08/04/20. Worrisome signs and symptoms which would warrant return to the emergency department were discussed and he verbalized understanding. (2) PFO (patent foramen ovale): Code(s): Q21.1 - Atrial septal defect Status: Ruled-out Assessment and Plan: Ruled-out. Possible PFO was suggested on 2D echocardiogram with Valsalva only. Cardiology was consulted and recommended ARIEL. He underwent ARIEL on 08/04/20 which demonstrated no evidence of intracardiac shunt at the atrial level with or without Valsalva. (3) Cardiomyopathy: Code(s): I42.9 - Cardiomyopathy, unspecified Status: Chronic Assessment and Plan: Echocardiogram performed 08/02/20 demonstrated moderate LV enlargement with EF 45-50%, grade I diastolic dysfunction. He appeared euvolemic and well-compensated. Cardiomyopathy may be secondary to uncontrolled hypertension, alcohol use, or undiagnosed CAD. He was seen by cardiology and metoprolol succinate was initiated. He will also continue losartan at discharge. He was encouraged to abstain from alcohol and stop smoking immediately. He will continue follow-up with cardiology and he will need an
--- NOTE | 2020-08-04 11:40 | PCDIET ---
Returned from GI Lab via stretcher.
[2020-08-04] MEDS: LOSARTAN POTASSIUM 50 MG TABLET PO (11:53)
[2020-08-04] MEDS: ASPIRIN 81 MG ENTERIC TABLET PO (11:53)
[2020-08-04] MEDS: hydroCHLOROthiazide 25 MG TABLET PO (11:53)
[2020-08-04] MEDS: ATORVASTATIN 20 MG TABLET PO (11:55)
[2020-08-04] MEDS: METOPROLOL SUCCINATE EXT REL 25 MG TABCR PO (11:55)
== END 2020-08-04 13:55 | disposition home or self-care (01) | DRG 65 ==
LOC: ANHED 16:28 → ANH2MED 19:09
PROVIDERS: Internal Medicine Cardiovascular Disease; Physician Assistant; Admitting Provider Internal Medicine; Emergency Provider Emergency Medicine; Visit Provider Physician Assistant
PROC: B24BZZ4 Ultrasonography of Heart with Aorta, Transesophageal (ICD-10-PCS; CPT 93312; principal; 2020-08-04 10:30)
DX: I63.9 Cerebral infarction, unspecified (principal); I42.9 Cardiomyopathy, unspecified; R20.0 Anesthesia of skin; R47.81 Slurred speech; I16.0 Hypertensive urgency; I10 Essential (primary) hypertension; R90.89 Other abnormal findings on diagnostic imaging of central nervous system; F10.10 Alcohol abuse, uncomplicated; F17.210 Nicotine dependence, cigarettes, uncomplicated; H54.40 Blindness, one eye, unspecified eye
CPT/HCPCS: 36415; 70450; 70553; 71045; 80048; 80061; 80076; 83735; 84484; 85025; 85610; 85730; 92610; 93005; 93312; 93320; 93325; 93880; 96375; 99285; A9270; A9577; C8929; J0360; J2704; J7120; Q9957